=== PATIENT | female | born 1960 | race Caucasian/White ===

== ENCOUNTER 2019-05-07 10:32 | Emergency (ER) | payer MEDICAID, OTHER ==
[~2019-05-07] VITALS: Ht 157.5 cm; Wt 72.5 kg
[~2019-05-07 10:32] MED LIST: VENL150C PO
[2019-05-07 10:44] VITALS: BP 114/74
== END 2019-05-07 11:24 | disposition home or self-care (01) ==
LOC: ED 11:15
DX: J01.01 Acute recurrent maxillary sinusitis (principal)
CPT/HCPCS: 99283

== ENCOUNTER 2019-08-30 09:11 | Emergency (ER) | payer BC ==
[~2019-08-30] VITALS: Ht 157.5 cm; Wt 72.0 kg
[2019-08-30 09:15] VITALS: BP 133/88
[2019-08-30 10:13] LABS: RAPID INFLUENZA A Negative (Negative); RAPID INFLUENZA B Negative (Negative)
[2019-08-30] MEDS ORDERED: DEXAMETHASONE 4 MG TABLET PO ONE (10:30)
[2019-08-30] MEDS ORDERED: DEXAMETHASONE 4 MG TABLET ONE (10:31)
--- NOTE | 2019-08-30 10:50 | NUR ---
PT. WAS GIVEN DISCHARGE INSTRUCTIONS AND SCRIPTS WITH UNDERSTANDING VERBALIZED ALONG WITH WILLINGNESS TO COMPLY. PT. WAS AMBULATORY TO THE DISCHARGE DESK WITH A STEADY GAIT.
== END 2019-08-30 10:53 | disposition home or self-care (01) ==
LOC: ED 10:20
DX: J06.9 Acute upper respiratory infection, unspecified (principal); B34.9 Viral infection, unspecified
CPT/HCPCS: 71046; 87400; 99284